=== PATIENT | male | born 1990 | race Caucasian/White ===

== ENCOUNTER 2021-07-23 00:13 | Emergency (ER) | payer BC, OTHER ==
[2021-07-23] MEDS ORDERED: Sodium Chloride 0.9% 2.5 ML Syringe FLUSH PRN (00:33)
[2021-07-23] MEDS ORDERED: Ondansetron 4 MG/2 ML SDV IVPUSH ONE (00:33)
[2021-07-23] MEDS ORDERED: Sodium Chloride 0.9% 1,000 ML IV ONE (00:33)
[2021-07-23] MEDS ORDERED: Sodium Chloride 0.9% 10 ML Syringe FLUSH PRN (00:33)
[2021-07-23] MEDS ORDERED: Ketorolac 30 MG/ML SDV IVPUSH ONE (00:34)
[2021-07-23 01:01] LABS: BLOOD UREA NITROGEN,BUN 8 mg/dL (7.0-18.0); CARBON DIOXIDE,CO2 30.2 mmol/L (21.0-32.0); CHLORIDE,CL 102 mmol/L (98-107); GLUCOSE RANDOM 108 mg/dL (74-106); LIPASE 29 U/L (73-393); POTASSIUM,K 3.9 mmol/L (3.5-5.1); SODIUM,NA 141 mmol/L (136-148)
== END 2021-07-23 02:32 | disposition home or self-care (01) ==
LOC: MW.ED 00:13
DX: R10.33 Periumbilical pain (principal)
CPT/HCPCS: 36415; 74176; 80053; 81001; 83690; 85025; 96374; 96375; 99284; J1885; J2405; J7030

== ENCOUNTER 2021-07-23 04:57 | Emergency (ER) | payer OTHER ==
[2021-07-23] MEDS ORDERED: Dicyclomine 10 MG Cap PO ONE (04:59)
[2021-07-23] MEDS ORDERED: Ondansetron 4 MG Tab.DIS PO ONE (04:59)
[2021-07-23] MEDS ORDERED: Ketorolac 30 MG/ML SDV IM ONE (04:59)
[2021-07-23] MEDS ORDERED: Ondansetron 4 MG/2 ML SDV IVPUSH ONE (05:03)
[2021-07-23] MEDS ORDERED: Ketorolac 30 MG/ML SDV IVPUSH ONE (05:03)
[2021-07-23 05:41] LABS: BLOOD UREA NITROGEN,BUN 7 mg/dL (7.0-18.0); CARBON DIOXIDE,CO2 29.9 mmol/L (21.0-32.0); CHLORIDE,CL 104 mmol/L (98-107); GLUCOSE RANDOM 120 mg/dL (74-106); LIPASE 32 U/L (73-393); POTASSIUM,K 3.6 mmol/L (3.5-5.1); SODIUM,NA 141 mmol/L (136-148)
[2021-07-23] MEDS ORDERED: Alum Hydro/Mag Hydro/Simeth XS 15 ML, Lidocaine 2% 5 ML PO ONE ×2 (05:55)
[2021-07-23] MEDS ORDERED: Pantoprazole 40 MG in Sodium Chloride 0.9% 10 ML IVPUSH SCH ×2 (06:00→06:15)
[2021-07-23] MEDS ORDERED: fentaNYL 50 MCG/ML SDV IVPUSH ONE (06:00)
[2021-07-23] MEDS ORDERED: Pantoprazole 40 MG Vial IVPUSH SCH (09:00)
== END 2021-07-23 09:04 | disposition home or self-care (01) ==
LOC: MW.ED 04:57
DX: K65.4 Sclerosing mesenteritis (principal)
CPT/HCPCS: 36415; 76705; 80053; 83690; 85025; 96374; 96375; 99284; A9270; C9113; J1885; J2405; J3010